=== PATIENT | female | born 1995 | race Caucasian/White ===

== ENCOUNTER 2022-11-08 16:47 | Emergency (ER) | payer BC ==
[~2022-11-08] VITALS: Ht 170.2 cm; Wt 63.5 kg
--- NOTE | 2022-11-08 17:10 | NUR ---
AT BEDSIDE FOR EVALUATION.
[2022-11-08 17:26] VITALS: BP 114/72
--- NOTE | 2022-11-08 17:26 | NUR ---
Patient discharged to home in stable condition. Written and verbal after care instructions given. Patient verbalizes understanding of instructions. Stressed follow up or return to ER for worsening s/s.
== END 2022-11-08 17:26 | disposition home or self-care (01) ==
LOC: ER 16:47
DX: H93.A1 Pulsatile tinnitus, right ear (principal); Z88.0 Allergy status to penicillin
CPT/HCPCS: A4663

== ENCOUNTER 2024-12-31 08:17 | Emergency (ER) | payer BC ==
[~2024-12-31] VITALS: Ht 167.6 cm; Wt 68.0 kg
[2024-12-31] MEDS ORDERED: DEXT20TA6 PO (08:35)
[2024-12-31 08:54] LABS: CALCIUM 10.1 mg/dL (8.5-10.1); CREATININE 0.8 mg/dL (0.6-1.3); POTASSIUM 4.1 mmol/L (3.5-5.1)
[2024-12-31 09:01] LABS: ALBUMIN 3.9 g/dL (3.4-5.0); BILIRUBIN,DIRECT 0.1 mg/dL (0.0-0.2); BILIRUBIN,TOTAL 0.5 mg/dL (0.2-1.0); TOTAL PROTEIN, SERUM 7.8 g/dL (6.4-8.2)
[2024-12-31 09:06] LABS: BASOPHILS # (AUTO) 0.1 K/UL (0.0-0.2); BASOPHILS % (AUTO) 0.9 % (0.0-2.0); EOSINOPHILS # (AUTO) 0.5 K/uL (0.0-0.7); EOSINOPHILS % (AUTO) 6.2 % (0.0-7.0); HEMATOCRIT 39.8 % (31.2-41.9); HEMOGLOBIN 13.5 g/dL (10.9-14.3); LYMPHOCYTES # (AUTO) 2.8 K/uL (0.8-4.8); LYMPHOCYTES % (AUTO) 32.4 % (20.5-51.5); MEAN CORPUSCULAR HEMOGLOBIN 29.5 uug (24.7-32.8); MEAN CORPUSCULAR HGB CONC 34 g/dL (32.3-35.6); MEAN CORPUSCULAR VOLUME 86.6 fL (75.5-95.3); MONOCYTES # (AUTO) 0.7 K/uL (0.1-1.30); NEUTROPHILS # (AUTO) 4.5 K/uL (1.8-8.9); NEUTROPHILS % (AUTO) 52.5 % (38.5-71.5); PLATELET COUNT (AUTO) 246 K/uL (179-408); RED BLOOD CELL COUNT(AUTO) 4.59 MIL/uL (3.63-4.92); RED CELL DISTRIBUTION WIDTH 13.5 % (12.3-17.7); WHITE BLOOD COUNT (AUTO) 8.6 K/uL (3.8-11.8)
[2024-12-31] MEDS ORDERED: FAMO-132 PO (09:43)
[2024-12-31 09:51] VITALS: BP 120/71; O2SAT 99
== END 2024-12-31 09:51 | disposition home or self-care (01) ==
LOC: ER 08:17
DX: K21.9 Gastro-esophageal reflux disease without esophagitis (principal); F90.9 Attention-deficit hyperactivity disorder, unspecified type; Z88.0 Allergy status to penicillin
CPT/HCPCS: 36415; 83690; 85025; A4606; A4663